=== PATIENT | male | born 1965 | race Caucasian/White ===

== ENCOUNTER 2024-02-19 08:29 | Outpatient (CLI) | payer BC, SELFPAY ==
--- NOTE | ~2024-02-19 | PE_ITS ---
EXAMINATION: PET_PETPSMAST_PT DATE: 02/19/2024 10:37 INDICATION: Prostate cancer TECHNIQUE: 5.272 mCi of Illucix Ga-68([id number]) was administered i.v. Low dose computed lydia graphy (CT) images were acquired from the base of the brain to the base of the brain to the proximal thighs for attenuation correction and anatomic localization. Positron emission tomography (PET) image s were acquired in the same distribution beginning 87 minutes after injection. Images including fused PET/CT images were reconstructed in axial, coronal, and sagittal planes. Automated exposure control technique was employed. The dose-length product was 1289.19 mGy-cm. COMPARISON: None FINDINGS: Head/neck: Typical pattern of symmetric physiologic increased activity in the lacrimal, parotid and submandibula r glands as well as along the mucosa of the nasal and oral cavities, pharynx and hypopharynx. No path ologically enlarged cervical lymphadenopathy or suspicious foci of increased uptake in the visualized head or neck. Chest: Minimal discoid atelectasis at the left apex. Calcified left lower lobe nodule along with calcified r ight hilar lymph nodes consistent with old granulomatous disease. No suspicious pulmonary nodules, pn eumonia, pulmonary edema or pleural effusion. Heart size is normal. Small amount of atherosclerotic c oronary artery calcification and aortic LOCATION. No pericardial effusion. Thoracic aorta is normal i n caliber. No pathologically enlarged thoracic lymphadenopathy. Moderate bilateral gynecomastia. Abdomen/pelvis/proximal thighs: Physiologic renal accumulation and excretion of activity in the kidneys, bladder and along portions o f ureters. Status post prostatectomy. No evident abnormal soft tissue or abnormal PSMA activity in th e region of the prostatectomy bed. Normal degree and slightly heterogenous pattern of increased uptak e throughout the liver and spleen without radiologic correlate or dominant PSMA avid lesion. The gall bladder, pancreas and bilateral adrenal glands are normal. Moderate uptake scattered throughout the b owels with typical duodenal and proximal jejunal predominance and without radiologic correlate, also likely physiologic. There are few scattered colonic diverticula without adjacent comparison to sugges t diverticulitis. No other abnormal foci of increased uptake or pathologically enlarged lymphadenopat hy in the abdomen, pelvis or proximal thighs. Musculoskeletal: Several scattered sclerotic bone lesions most prominent at the T6, T10, T11 and L2 vertebral bodies a nd at the left posterior iliac spine suggestive of treated metastatic prostate cancer which are all w ithout evident PSMA activity to suggest ongoing active metastatic disease. IMPRESSION: 1. Several scattered sclerotic bone lesions without PSMA activity consistent with chronic treated met astatic disease. No PSMA avid lesions to suggest residual, locally recurrent or active metastatic dis ease. Reviewed, dictated and finalized at location B. IMPRESSION: 1. Several scattered sclerotic bone lesions without PSMA activity consistent wi th chronic treated metastatic disease. No PSMA avid lesions to suggest residual , locally recurrent or active metastatic disease.
== END 2024-02-19 08:30 | disposition home or self-care (01) ==
LOC: ANHIMG 08:33
PROVIDERS: PCP Family Medicine; Visit Provider Urology
DX: C61 Malignant neoplasm of prostate (principal); C79.51 Secondary malignant neoplasm of bone
CPT/HCPCS: 78815; A9596

== ENCOUNTER 2024-03-21 14:36 | Outpatient (CLI) | payer BC, SELFPAY ==
--- NOTE | ~2024-03-21 | DEXA_ITS ---
Bone Density Report Name: DENISSE LONG Age: 58 Sex: Male Ethnicity: White Date of : 1965 Indication: height loss; cancer; Referring Provider: KATIA ACEVEDO Study: Bone densitometry was performed. Exam Date: March 21, 2024 Accession number: [id number] Bone Density: Region BMD T-score Z-score Classification AP Spine(L1-L4) 1.746 6.0 6.6 Normal Femoral Neck (Left) 1.133 1.5 2.4 Normal Total Hip (Left) 1.325 1.9 2.4 Normal Femoral Neck (Right) 1.159 1.7 2.6 Normal Total Hip (Right) 1.367 2.2 2.7 Normal Total Hip Mean 1.346 2.1 2.6 Normal World Health Organization criteria for BMD impression classify patients as: Normal (T-score at or above -1.0), Osteopenia (T-score between -1.0 and -2.5), or Osteoporosis (T-score at or below -2.5). 10-year Fracture Risk: FRAX not reported because: All T-scores for Spine Total, Hip Total, Femoral Neck at or above -1.0 Clinical Information Provided by Patient: Has used the following medications: Vitamin D, Calcium Has the following medical conditions: Cancer Patient maximum height was 70.5 No regular weight bearing exercise Drinks caffeinated beverages Impression: The patient has normal bone mass. Discussion: LOW RISK OF FRACTURE; BONE DENSITY IS WELL ABOVE THE MINIMUM DESIRABLE LEVEL AND ABOVE AVERAGE FOR AGE AND SEX AT ALL SKELETAL SITES TESTED. This person's bone density is above expected limits for age and sex. This is rarely clinically significant, but should be pursued if there are significant musculoskeletal complaints. The patient should follow a healthful lifestyle (good nutrition with adequate calcium and vitamin D, and appropriate weight-bearing exercise). Follow-Up: Consider repeating this study in 5 years or sooner if there is some new clinical indication. Reported by: MADDY on 03/21/2024 3:13:00 PM. Reviewed, dictated and finalized at location [facility]
== END 2024-03-21 14:37 | disposition home or self-care (01) ==
LOC: ANHIMG 14:38
PROVIDERS: PCP Family Medicine; Visit Provider Urology
DX: C61 Malignant neoplasm of prostate (principal)
CPT/HCPCS: 77080